=== PATIENT | male | born 1965 | race Hispanic/Latino ===

== ENCOUNTER 2018-01-23 11:27 | Emergency (ER) | payer OTHER ==
--- OUTSIDE RECORDS SUMMARY | 2018-01-23 11:29 | XMS REPORT ---
:1965 Author Organization eClinicalWorks Care Team Providers Name Role Phone Obando, Na Provider Role Unavailable Allergies, Adverse Reactions, Alerts Substance Reaction Event Type N.K.D.A. Info Not Available Non Drug Allergy Problems Problem Type Condition Code Onset Dates Condition Status Assessment Gastro-esophageal reflux disease K21.9 Active without esophagitis Problem Abdominal mass, left lower quadrant R19.04 Active Assessment Diaphragmatic hernia without K44.9 Active obstruction or gangrene Problem Hiatal hernia K44.9 Active Problem Chest discomfort R07.89 Active Problem Allergic rhinitis J30.9 Active Problem Cervical radiculopathy M54.12 Active Problem Diaphragmatic hernia without K44.9 Active obstruction or gangrene Problem Gastro-esophageal reflux disease K21.9 Active without esophagitis Problem Sciatica of right side M54.31 Active Assessment Chest discomfort R07.89 Active Assessment Sciatica of right side M54.31 Active Assessment Cervical radiculopathy M54.12 Active Medications No Known Medications Results No Known Results Summary Purpose eClinicalLinktone Submission
[2018-01-23] MEDS ORDERED: NA CHLORIDE 0.9% 1,000 ML ONE (12:28)
[2018-01-23] MEDS ORDERED: FENTANYL CITR 100 MCG/2 ML ONE (12:28)
[2018-01-23 12:50] LABS: Absolute Lymphocytes (CBC) 1.2 K/uL (0.7-4.9); Absolute Monocytes 0.6 K/uL (0.1-1.3); Absolute Neutrophil 6.4 K/uL (1.8-8.0); Basophils % 0.8 % (0-1.3); Eosinophils % 0.4 % (0-4.4); Lymphocytes % 14.4 % (15.3-44.8); MCH 30.4 pg (27.0-35.0); MCV 90.2 fL (80-100); Monocytes % 6.7 % (3.3-12.3); RBC Red Blood Cell Count 4.76 M/uL (4.33-5.43)
[2018-01-23 13:08] LABS: Bicarbonate 26 mEq/L (21-31); Glucose Level 105 mg/dL (65-120); Potassium 3.8 mEq/L (3.6-5.0); Sodium Level 137 mEq/L (135-145)
[2018-01-23 13:14] LABS: ALT/SGPT 61 IU/L (10-60); AST/SGOT 36 IU/L (10-42); Albumin 4.3 g/dL (3.2-5.5); Alkaline Phosphatase 71 IU/L (42-121); BUN Blood Urea Nitrogen 15 mg/dL (6-20); Bilirubin Direct 0.1 mg/dL (0-0.2); Bilirubin Total 1.2 mg/dL (0.3-1.2); Protein, Total 7.4 g/dL (6.0-8.3)
--- NOTE | 2018-01-23 15:28 | RAD REPORT ---
EXAM DESCRIPTION: CT - Abdomen Pelvis W Contrast - 01/23/2018 2:53 pm CLINICAL HISTORY: Abdominal pain, rectal pain, rectal bleeding COMPARISON: None. TECHNIQUE: Biphasic, helical CT imaging of the abdomen and pelvis was performed following 100 ml non -ionic IV contrast. Oral contrast was given. All CT scans are performed using dose optimization technique as appropriate and may include automated exposure control or mA/KV adjustment according to patient size. FINDINGS: No acute infiltrate in either lung base. No pneumothorax or pleural effusion. No pericardi al effusion. In the anterior right lung base a 7 millimeter round nodule is present. This is relative ly dense but not clearly calcified. There are no comparison studies that can establish a long-term st ability. Followup recommendation for 7 millimeter pulmonary nodule is the same for low risk and high risk yareli ents. Follow-up for a solitary nodule is -2011 months. The patient could have additional nodules wh ich would shortened the follow-up time to 3-6 months. The liver, spleen, and pancreas show no suspicious findings. Liver is borderline to mildly fatty infi ltrated. No gallbladder or biliary tree abnormality. Symmetric renal function is seen with no hydronephrosis or suspicious renal mass. No pyelonephritis o r acute renal parenchymal process. No urinary bladder abnormality. Prostate gland and seminal vesicle s are normal range. No gastric dilatation or gastric wall thickening. A small hiatal hernia is present. No acute small margarita wel finding. The appendix is normal. Patient has a moderate diverticulosis pattern in the redundant s igmoid colon. Shaw are mildly prominent. Patient could have a minimal mucosal level colitis or diver ticulitis. No stranding in the adjacent fatty tissue. There peristalsis artifacts. Short-segment narr owing of the distal sigmoid colon is probably from peristalsis. No free air, free fluid or inflammatory stranding. No mass or bulky lymphadenopathy. Bilateral fat f illed inguinal hernias are present larger on the right. No adrenal abnormality. No suspicious bony findings. IMPRESSION: Patient has a mild to moderate sigmoid diverticulosis pattern without clear evidence for diverticulitis, mass or other acute colon finding. Colon shaw are mildly prominent from the chronic diverticulosis and probable peristalsis. Primary co portillo mass is unlikely. Approximately 7 millimeter pulmonary nodule anterior right lung base. No comparison is available and this is not a complete assessment of the chest. Followup recommendation for a solitary pulmonary nodule 7 millimeter in size would be CT imaging in 6 -12 months. If the patient had multiple pulmonary nodules follow-up would be 3-6 months. A [address] chest follow-up would be reasonable in this setting.
--- NOTE | 2018-01-23 15:33 | ER ---
Nurse's Notes [facility] Name: Scout Rubio Age: 52 yrs Sex: Male : 1965 Arrival Date: 01/23/2018 Time: 11:31 Bed 19 Private MD: Tamanna Obando Diagnosis: Gastrointestinal hemorrhage, unspecified;Diverticulosis of intestine, part unspecified, without perforation or abscess without bleeding Presentation: 01/23 11:32 Presenting complaint: Patient states: " I had a BM a few days ago that was really ph painful and since then I've been having bleeding." Pt reports blood on toilet paper and small amount of bright red blood in toilet, also reports pain in LLQ, denies N/V, dizziness, SOB. Transition of care: patient was not received from another setting of care. Onset of symptoms was January 23, 2018. Risk Assessment: Do you want to hurt yourself or someone else? Patient reports no desire to harm self or others. Initial Sepsis Screen: Does the patient meet any 2 criteria? No. Patient's initial sepsis screen is negative. Does the patient have a suspected source of infection? No. Patient's initial sepsis screen is negative. Care prior to arrival: None. 11:32 Method Of Arrival: Ambulatory ph 11:32 Acuity: JUAN RAMON 3 ph Historical: - Allergies: 11:35 PENICILLINS; ph - Home Meds: 11:35 None [Active]; ph - PMHx: 11:35 Ulcers; ph - PSHx: 11:35 None; ph - Immunization history:: Adult Immunizations unknown. - Social history:: Smoking status: Patient uses tobacco products, smokes one-half pack cigarettes per day. - Ebola Screening: : No symptoms or risks identified at this time. Screenin:00 Abuse screen: Denies threats or abuse. Nutritional screening: No deficits noted. em Tuberculosis screening: No symptoms or risk factors identified. Fall Risk None identified. Assessment: 11:40 General: Appears in no apparent distress. comfortable, Behavior is calm, cooperative. em Pain: Denies pain. Neuro: Level of Consciousness is awake, alert, obeys commands, Oriented to person, place, time, situation. Cardiovascular: Denies chest pain, lightheadedness, shortness of breath, Capillary refill < 3 seconds Patient's skin is warm and dry. Respiratory: Airway is patent Respiratory effort is even, unlabored, Respiratory pattern is regular, symmetrical. GI: Abdomen is flat, Patient currently denies nausea, vomiting. : No signs and/or symptoms were reported regarding the genitourinary system. EENT: No signs and/or symptoms were reported regarding the EENT system. Derm: Skin is intact, Skin is pink, warm \\T\\ dry. Musculoskeletal: Range of motion: intact in all extremities. 11:50 Reassessment: Patient appears in no apparent distress at this time. I agree with above iw assessment by Jeff Flores LVN. 12:40 Reassessment: Patient appears in no apparent distress at this time. Patient and/or em family updated on plan of care and expected duration. Pain level reassessed. Patient is alert, oriented x 3, equal unlabored respirations, skin warm/dry/pink. Patient denies pain at this time. 12:45 Reassessment: Patient appears in no apparent distress at this time. finished drinking em PO contrast, tolerated well, CT notified. 13:45 Reassessment: Patient appears in no apparent distress at this time. Patient and/or em family updated on plan of care and expected duration. Pain level reassessed. Patient is alert, oriented x 3, equal unlabored respirations, skin warm/dry/pink. awaiting CT Patient denies pain at this time. 14:49 Reassessment: Patient appears in no apparent distress at this time. Patient and/or em family updated on plan of care and expected duration. Pain level reassessed. wheeled to CT via wheelchair. 15:13 Reassessment: Patient appears in no apparent distress at this time. Patient and/or em family updated on plan of care and expected duration. Pain level reassessed. Patient is alert, oriented x 3, equal unlabored respirations, skin warm/dry/pink. Patient denies pain at this time. 16:00 Reassessment: Patient appears in no apparent distress at this time. Patient and/or em family updated on plan of care and expected duration. Pain level reassessed. Patient is alert, oriented x 3, equal unlabored respirations, skin warm/dry/pink. Patient states feeling better. Vital Signs: 11:36 BP 134 / 86; Pulse 95; Resp 18; Temp 97.9; Pulse Ox 96% on R/A; Weight 90.72 kg; Height ph 5 ft. 7 in. (170.18 cm); 12:59 BP 117 / 77; Pulse 66; Resp 18; Pulse Ox 99% on R/A; dh3 13:45 BP 121 / 86; Pulse 64; Resp 18; Pulse Ox 98% on R/A; Pain 0/10; em 15:45 BP 116 / 87; Pulse 65; Resp 15; Pulse Ox 97% on R/A; Pain 0/10; em 11:36 Body Mass Index 31.32 (90.72 kg, 170.18 cm) ph ED Course: 11:31 Patient arrived in ED. mr 11:31 Tamanna Obando MD is Private Physician. mr 11:35 Triage completed. ph 11:37 Arm band placed on. ph 11:42 Jeff Flores LVN is Primary Nurse. em 12:00 No provider procedures requiring assistance completed. em 12:01 Patient has correct armband on for positive identification. Call light in reach. Adult em w/ patient. 12:03 [facility] Milton [facility] snw 12:03 Mik Glasgow MD is Attending Physician. snw 13:00 Inserted saline lock: 20 gauge in right forearm, using aseptic technique. Blood em collected. 13:00 Initial lab(s) drawn, by me, sent to lab. em 14:[address] via wheelchair. mw3 14:53 CT Abd/Pelvis - W/Contrast In Process Unspecified. EDMS 14:53 CT completed. Patient tolerated procedure well. Patient moved back from CT. mw3 15:10 Urine collected: clean catch specimen, clear. dh3 15:32 Tamanna Obando MD is Referral Physician. snw 16:17 IV discontinued, intact, bleeding controlled, No redness/swelling at site. Pressure em dressing applied. Administered Medications: 12:40 Drug: NS 0.9% 1000 ml Route: IV; Rate: 1 bolus; Site: right forearm; em 13:44 Follow up: IV Status: Completed infusion; IV Intake: 1000ml em 12:48 Not Given (Physician Discretion): fentaNYL (PF) 25 mcg IVP once em 16:15 Drug: Cipro 500 mg Route: PO; em 16:20 Follow up: Response: Medication administered at discharge. em Intake: 13:44 IV: 1000ml; Total: 1000ml. em Outcome: 15:33 Discharge ordered by MD. kim 16:18 Discharged to home ambulatory. em 16:18 Condition: good 16:18 Discharge instructions given to patient, Instructed on discharge instructions, follow up and referral plans. medication usage, Demonstrated understanding of instructions, follow-up care, medications, Prescriptions given X 2. 16:19 Patient left the ED. em Signatures: Dispatcher [employer] EDMS Joseline Milton, PETROLEUM GEOLOGIST-C PETROLEUM GEOLOGIST-Csnw Marbella Wilson, Jeff, DISPLAY SCREEN FABRICATOR DISPLAY SCREEN FABRICATOR em Stephani Ponce, RN RN Anais Hector RN RN Shankar, Alissa [facility] Malaika Champagne 3
--- NOTE | 2018-01-23 15:33 | EDPHYS ---
Physician Documentation [facility] Name: Scout Rubio Age: 52 yrs Sex: Male : 1965 Arrival Date: 01/23/2018 Time: 11:31 Bed 19 Private MD: Tamanna Obando ED Physician Mik Glasgow HPI: 01/23 12:31 This 52 yrs old Male presents to ER via Ambulatory with complaints of Bloody snw Stools. 12:31 Onset: The symptoms/episode began/occurred 3 day(s) ago, and became persistent. snw Associated signs and symptoms: Pertinent positives: hard stool three days ago, followed by bright red rectal bleeding daily since. Modifying factors: The patient symptoms are alleviated by nothing. The patient has experienced a previous episode. The patient has not recently seen a physician. mild left lower, mid abd pain. Historical: - Allergies: 11:35 PENICILLINS; ph - Home Meds: 11:35 None [Active]; ph - PMHx: 11:35 Ulcers; ph - PSHx: 11:35 None; ph - Immunization history:: Adult Immunizations unknown. - Social history:: Smoking status: Patient uses tobacco products, smokes one-half pack cigarettes per day. - Ebola Screening: : No symptoms or risks identified at this time. ROS: 12:26 Constitutional: Negative for fever, chills, and weight loss, Eyes: Negative for injury, snw pain, redness, and discharge, ENT: Negative for injury, pain, and discharge, Neck: Negative for injury, pain, and swelling, Cardiovascular: Negative for chest pain, palpitations, and edema, Respiratory: Negative for shortness of breath, cough, wheezing, and pleuritic chest pain, Abdomen/GI: Negative for abdominal pain, nausea, vomiting, diarrhea, and constipation, + bright red blood on toilet paper and in water, notes decrease in diameter of stool. Pt had colonoscopy 4 yrs ago. + stomach ulcer with bleeding and blood transfusion prompted GI eval. at that time Back: Negative for injury and pain, : Negative for injury, bleeding, discharge, and swelling, MS/Extremity: Negative for injury and deformity, Skin: Negative for injury, rash, and discoloration, Neuro: Negative for headache, weakness, numbness, tingling, and seizure. Exam: 12:25 Constitutional: This is a well developed, well nourished patient who is awake, alert, snw and in no acute distress. Head/Face: Normocephalic, atraumatic. Eyes: Pupils equal round and reactive to light, extra-ocular motions intact. Lids and lashes normal. Conjunctiva and sclera are non-icteric and not injected. Cornea within normal limits. Periorbital areas with no swelling, redness, or edema. ENT: Nares patent. No nasal discharge, no septal abnormalities noted. Tympanic membranes are normal and external auditory canals are clear. Oropharynx with no redness, swelling, or masses, exudates, or evidence of obstruction, uvula midline. Mucous membranes moist. Neck: Trachea midline, no thyromegaly or masses palpated, and no cervical lymphadenopathy. Supple, full range of motion without nuchal rigidity, or vertebral point tenderness. No Meningismus. Chest/axilla: Normal chest wall appearance and motion. Nontender with no deformity. No lesions are appreciated. Cardiovascular: Regular rate and rhythm with a normal S1 and S2. No gallops, murmurs, or rubs. Normal PMI, no JVD. No pulse deficits. Respiratory: Lungs have equal breath sounds bilaterally, clear to auscultation and percussion. No rales, rhonchi or wheezes noted. No increased work of breathing, no retractions or nasal flaring. Back: No spinal tenderness. No costovertebral tenderness. Full range of motion. Skin: Warm, dry with normal turgor. Normal color with no rashes, no lesions, and no evidence of cellulitis. MS/ Extremity: Pulses equal, no cyanosis. Neurovascular intact. Full, normal range of motion. Neuro: Awake and alert, GCS 15, oriented to person, place, time, and situation. Cranial nerves II-XII grossly intact. Motor strength 5/5 in all extremities. Sensory grossly intact. Cerebellar exam normal. Normal gait. Psych: Awake, alert, with orientation to person, place and time. Behavior, mood, and affect are within normal limits. 12:25 Abdomen/GI: Inspection: abdomen appears normal, Bowel sounds: normal, Palpation: mild abdominal tenderness, in the left upper quadrant and left lower quadrant, no appreciated organomegaly, Rectal exam: Prostate: normal, rectal tone normal, Stool: guaiac positive, hemorrhoid(s), without inflammation, without pain, mass, is not appreciated, fecal impaction, is not appreciated, the exam is chaperoned by the nurse, cystic characteristic to mass at border of left lower rib/upper abdomen area, non tender, pt states it has been there, unchanged, for years. Vital Signs: 11:36 BP 134 / 86; Pulse 95; Resp 18; Temp 97.9; Pulse Ox 96% on R/A; Weight 90.72 kg; Height ph 5 ft. 7 in. (170.18 cm); 12:59 BP 117 / 77; Pulse 66; Resp 18; Pulse Ox 99% on R/A; dh3 13:45 BP 121 / 86; Pulse 64; Resp 18; Pulse Ox 98% on R/A; Pain 0/10; em 15:45 BP 116 / 87; Pulse 65; Resp 15; Pulse Ox 97% on R/A; Pain 0/10; em 11:36 Body Mass Index 31.32 (90.72 kg, 170.18 cm) ph MDM: 12:03 Patient medically screened. snw 15:36 Data reviewed: vital signs, nurses notes. Data interpreted: Pulse oximetry: on room air snw is 98 %. Interpretation: normal. Counseling: I had a detailed discussion with the patient and/or guardian regarding: the historical points, exam findings, and any diagnostic results supporting the discharge/admit diagnosis, the presence of at least one elevated blood pressure reading (>120/80) during this emergency department visit, lab results, radiology results, the need for outpatient follow up, to return to the emergency department if symptoms worsen or persist or if there are any questions or concerns that arise at home. Special discussion: Based on the patient's Hx, exam, and Dx evaluation, there is no indication for emergent surgery or inpatient Tx. It is understood by the patient/guardian that if the Sx's persist or worsen they need to return immediately for re-evaluation. I have referred the patient to see his PCP for further evaluation of high blood pressure. Based on the history and exam findings, there is no indication for further emergent testing or inpatient evaluation. I discussed with the patient/guardian the need to see the dermatologist for further evaluation of the symptoms. I discussed with the patient/guardian the need to see the primary care provider for further evaluation of the symptoms. 01/23 12:24 Order name: Basic Metabolic Panel; Complete Time: 13:16 snw 01/23 12:24 Order name: CBC with Diff; Complete Time: 12:57 snw 01/23 12:24 Order name: Hepatic Function; Complete Time: 13:16 snw 01/23 12:24 Order name: CT Abd/Pelvis - W/Contrast; Complete Time: 15:28 snw 01/23 12:24 Order name: Guiac; Complete Time: 15:08 snw 01/23 15:36 Order name: Urine Dipstick--Ancillary (enter results); Complete Time: 16:06 bd 01/23 12:24 Order name: IV Saline Lock; Complete Time: 13:14 snw 01/23 12:24 Order name: Labs collected and sent; Complete Time: 13:14 snw 01/23 12:24 Order name: Urine Dipstick-Ancillary (obtain specimen); Complete Time: 15:10 snw Administered Medications: 12:40 Drug: NS 0.9% 1000 ml Route: IV; Rate: 1 bolus; Site: right forearm; em 13:44 Follow up: IV Status: Completed infusion; IV Intake: 1000ml em 12:48 Not Given (Physician Discretion): fentaNYL (PF) 25 mcg IVP once em 16:15 Drug: Cipro 500 mg Route: PO; em 16:20 Follow up: Response: Medication administered at discharge. em Disposition: 18:44 Co-signature as Attending Physician, Mik Glasgow MD I agree with the assessment and kdr plan of care. Disposition: 01/23/18 15:33 Discharged to Home. Impression: Gastrointestinal hemorrhage, unspecified, Diverticulosis of intestine, part unspecified, without perforation or abscess without bleeding. - Condition is Stable. - Discharge Instructions: Diverticulosis, Gastrointestinal Bleeding. - Prescriptions for Cipro 250 mg Oral Tablet - take 1 tablet by ORAL route every 12 hours for 10 days; 20 tablet. Protonix 40 mg Oral Tablet - take 1 tablet by ORAL route once daily; 30 tablet. - Medication Reconciliation Form, Thank You Letter, Antibiotic Education, Prescription Opioid Use form. - Follow up: Tamanna Obando; When: 2 - 3 days; Reason: Recheck today's complaints, Continuance of care, Re-evaluation by your physician. Follow up: Emergency Department; When: As needed; Reason: Worsening of condition. - Notes: Pulmonary nodule noted on CT of abdomen. Recommend re-evaluation by CT of chest in 6 months. Signatures: Dispatcher [employer] EDMS Mik Glasgow MD MD [facility] Joseline Milton, JUMANA CONSUMER LOAN MANAGER-Csnw Jeff Flores, SERVICE TRAINER SERVICE TRAINER em Anais Hector, RN RN ph Corrections: (The following items were deleted from the chart) 12:31 12:25 Abdomen/GI: Inspection: abdomen appears normal, Bowel sounds: normal, Palpation: snw mild abdominal tenderness, in the left upper quadrant and left lower quadrant, no appreciated organomegaly, Rectal exam: Prostate: normal, rectal tone normal, Stool: guaiac positive, hemorrhoid(s), without inflammation, without pain, mass, is not appreciated, fecal impaction, is not appreciated, the exam is chaperoned by the nurse, snw 16:19 15:33 01/23/2018 15:33 Discharged to Home. Impression: Gastrointestinal hemorrhage, em unspecified; Diverticulosis of intestine, part unspecified, without perforation or abscess without bleeding. Condition is Stable. Forms are Medication Reconciliation Form, Thank You Letter, Antibiotic Education, Prescription Opioid Use. Follow up: Tamanna Obando; When: 2 - 3 days; Reason: Recheck today's complaints, Continuance of care, Re-evaluation by your physician. Follow up: Emergency Department; When: As needed; Reason: Worsening of condition. snw
[2018-01-23 16:04] LABS: Urine Blood NEGATIVE (NEG); Urine Glucose NEGATIVE (NEG); Urine Protein NEGATIVE (NEG); Urine Specific Gravity 1.015 (1.005-1.030)
[2018-01-23] MEDS ORDERED: CIPROFLOXACIN HCL 500 MG TAB ONE (16:07)
== END 2018-01-23 16:19 | disposition home or self-care (01) ==
LOC: ER 11:27
DX: K57.90 Diverticulosis of intestine, part unspecified, without perforation or abscess without bleeding (principal); F17.210 Nicotine dependence, cigarettes, uncomplicated; Z88.0 Allergy status to penicillin
CPT/HCPCS: 36415; 74177; 80048; 80076; 81003; 82272; 85025; 96360; 99284; J3010; J7030; Q9967

== ENCOUNTER 2018-10-18 17:06 | Emergency (ER) | payer OTHER ==
--- OUTSIDE RECORDS SUMMARY | 2018-10-18 17:07 | XMS REPORT ---
[...] Medications Results No Known Results Summary Purpose eClinicalMonitor Submission
--- OUTSIDE RECORDS SUMMARY | 2018-10-18 17:08 | XMS REPORT ---
:1965 Author Organization eClinicalWorks Care Team Providers Name Role Phone Obando, Na Provider Role Unavailable Allergies, Adverse Reactions, Alerts Substance Reaction Event Type N.K.D.A. Info Not Available Non Drug Allergy Problems Problem Type Condition Code Onset Dates Condition Status Problem Cervical radiculopathy M54.12 Active Problem Gastro-esophageal reflux disease K21.9 Active without esophagitis Problem Sciatica of right side M54.31 Active Problem Diverticulosis of large intestine K57.30 Active without hemorrhage Problem Pulmonary nodule, right R91.1 Active Problem Fatty liver K76.0 Active Problem Hiatal hernia K44.9 Active Problem Chest discomfort R07.89 Active Problem Allergic rhinitis J30.9 Active Problem Abdominal mass, left lower quadrant R19.04 Active Assessment Diverticulosis of large intestine K57.30 Active without hemorrhage Assessment Gastro-esophageal reflux disease K21.9 Active without esophagitis Assessment Diaphragmatic hernia without K44.9 Active obstruction or gangrene Assessment Pulmonary nodule, right R91.1 Active Assessment Fatty liver K76.0 Active Problem Diaphragmatic hernia without K44.9 Active obstruction or gangrene Medications No Known Medications Results No Known Results Summary Purpose eClinicalWorks Submission
--- OUTSIDE RECORDS SUMMARY | 2018-10-18 17:08 | XMS REPORT ---
:1965 Author Organization eClinicalWorks Care Team Providers Name Role Phone Obando, Na Provider Role Unavailable Allergies No Known Allergies Problems Problem Type Condition Code Onset Dates Condition Status Problem Cervical radiculopathy M54.12 Active Problem Gastro-esophageal reflux disease K21.9 Active without esophagitis Problem Sciatica of right side M54.31 Active Problem Diaphragmatic hernia without K44.9 Active obstruction or gangrene Problem Diverticulosis of large intestine K57.30 Active without hemorrhage Problem Pulmonary nodule, right R91.1 Active Problem Fatty liver K76.0 Active Problem Hiatal hernia K44.9 Active Problem Chest discomfort R07.89 Active Problem Allergic rhinitis J30.9 Active Problem Abdominal mass, left lower quadrant R19.04 Active Medications No Known Medications Results No Known Results Summary Purpose eClinicalWorks Submission
[2018-10-18 17:43] LABS: Absolute Lymphocytes (CBC) 1.7 K/uL (0.7-4.9); Absolute Monocytes 0.7 K/uL (0.1-1.3); Absolute Neutrophil 8.4 K/uL (1.8-8.0); Basophils % 0.7 % (0-1.3); Hematocrit 42.7 % (39.6-49.0); Lymphocytes % 15.8 % (15.3-44.8); MPV 9.3 fL (7.6-11.3); Monocytes % 6.4 % (3.3-12.3); RBC Red Blood Cell Count 4.74 M/uL (4.33-5.43)
[2018-10-18 17:44] LABS: Protime INR 1.02
[2018-10-18 17:58] LABS: ALT/SGPT 37 U/L (12-78); AST/SGOT 16 U/L (15-37); Albumin 4.1 g/dL (3.4-5.0); Alkaline Phosphatase 81 U/L (45-117); BUN Blood Urea Nitrogen 16 mg/dL (7-18); Bicarbonate 24 mmol/L (21-32); Bilirubin Direct 0.2 mg/dL (0-0.2); Bilirubin Total 0.6 mg/dL (0.2-1.0); Glucose Level 101 mg/dL (74-106); Magnesium 2.4 mg/dL (1.8-2.4); NT PRO-BNP 6 pg/mL (<125); Potassium 3.8 mmol/L (3.5-5.1); Protein, Total 7.5 g/dL (6.4-8.2); Sodium Level 140 mmol/L (136-145); Troponin (Emerg Dept Use Only) < 0.02 ng/mL (0.0-0.045)
--- NOTE | 2018-10-18 18:39 | RAD REPORT ---
EXAM DESCRIPTION: RAD - Chest Single View - 10/18/2018 6:06 pm CLINICAL HISTORY: Chest pain COMPARISON: October 2017 TECHNIQUE: AP portable chest image was obtained 1802 hours . FINDINGS: Lungs are clear. Heart and vasculature are normal. No measurable pleural effusion and no p neumothorax. No acute bony abnormality seen. No acute aortic findings suspected. IMPRESSION: No acute cardiopulmonary process. No significant interval change.
--- NOTE | 2018-10-18 20:27 | EDPHYS ---
Physician Documentation [facility] Name: Scout Rubio Age: 53 yrs Sex: Male : 1965 Arrival Date: 10/18/2018 Time: 17:07 Bed 6 Private MD: ED Physician Kiran Ferrari HPI: 10/18 18:00 This 53 yrs old Male presents to ER via Ambulatory with complaints of Chest pm1 pain. 18:00 The patient or guardian reports chest pain that is located primarily in the mid-sternal pm1 area. Onset: 1 week(s) ago. The pain does not radiate. Associated signs and symptoms: Pertinent positives: cough, Pertinent negatives: abdominal pain, diaphoresis, dizziness, headache, lightheadedness, nausea, near syncope, palpitations, shortness of breath, vomiting. The chest pain is described as sharp. Duration: The patient or guardian reports multiple episodes. Modifying factors: The symptoms are alleviated by nothing. the symptoms are aggravated by nothing. Severity of pain: in the emergency department the pain has resolved. The patient has experienced similar episodes in the past, a few times. The patient has not recently seen a physician. Patient reports numbness to tips of his right 4th and 5th finger. Historical: - Allergies: 17:12 PENICILLINS; aa5 - Home Meds: 17:12 None [Active]; aa5 - PMHx: 17:12 Ulcers; aa5 - PSHx: 17:12 "lungs drained as a child"; aa5 - Immunization history:: Flu vaccine is not up to date. - Social history:: Smoking status: Patient uses tobacco products, smokes one-half pack cigarettes per day. - Ebola Screening: : No symptoms or risks identified at this time. ROS: 18:00 Constitutional: Negative for fever, chills, and weight loss, Eyes: Negative for injury, pm1 pain, redness, and discharge, ENT: Negative for injury, pain, and discharge, Neck: Negative for injury, pain, and swelling, Respiratory: Negative for shortness of breath, cough, wheezing, and pleuritic chest pain, Abdomen/GI: Negative for abdominal pain, nausea, vomiting, diarrhea, and constipation, Back: Negative for injury and pain, : Negative for injury, bleeding, discharge, and swelling, MS/Extremity: Negative for injury and deformity, Skin: Negative for injury, rash, and discoloration. 18:00 Cardiovascular: Positive for chest pain, Negative for edema, orthopnea, palpitations, paroxysmal nocturnal dyspnea. 18:00 Neuro: Positive for numbness, of the palmar aspect of distal phalanx of right little finger and palmar aspect of distal phalanx of right ring finger, Negative for altered mental status, dizziness, headache, tingling, weakness. Exam: 18:00 Constitutional: This is a well developed, well nourished patient who is awake, alert, pm1 and in no acute distress. Head/Face: Normocephalic, atraumatic. Eyes: Pupils equal round and reactive to light, extra-ocular motions intact. Lids and lashes normal. Conjunctiva and sclera are non-icteric and not injected. Cornea within normal limits. Periorbital areas with no swelling, redness, or edema. ENT: Nares patent. No nasal discharge, no septal abnormalities noted. Tympanic membranes are normal and external auditory canals are clear. Oropharynx with no redness, swelling, or masses, exudates, or evidence of obstruction, uvula midline. Mucous membranes moist. Neck: Trachea midline, no thyromegaly or masses palpated, and no cervical lymphadenopathy. Supple, full range of motion without nuchal rigidity, or vertebral point tenderness. No Meningismus. Chest/axilla: Normal chest wall appearance and motion. Nontender with no deformity. No lesions are appreciated. Cardiovascular: Regular rate and rhythm with a normal S1 and S2. No gallops, murmurs, or rubs. Normal PMI, no JVD. No pulse deficits. Respiratory: Lungs have equal breath sounds bilaterally, clear to auscultation and percussion. No rales, rhonchi or wheezes noted. No increased work of breathing, no retractions or nasal flaring. Abdomen/GI: Soft, non-tender, with normal bowel sounds. No distension or tympany. No guarding or rebound. No evidence of tenderness throughout. Back: No spinal tenderness. No costovertebral tenderness. Full range of motion. Skin: Warm, dry with normal turgor. Normal color with no rashes, no lesions, and no evidence of cellulitis. MS/ Extremity: Pulses equal, no cyanosis. Neurovascular intact. Full, normal range of motion. 18:00 Neuro: Orientation: is normal, Motor: is normal, moves all fours, strength is normal, strength is 5/5 in all extremities, Sensation: is normal, no obvious gross deficits, Gait: is steady, at a normal pace, without difficulty. Vital Signs: 17:21 BP 126 / 95; Pulse 75; Resp 16 S; Temp 98.9(O); Pulse Ox 97% on R/A; Weight 90.72 kg aa5 (R); Height 5 ft. 6 in. (167.64 cm) (R); Pain 0/10; 19:20 BP 134 / 92; Pulse 66; Resp 16; Pulse Ox 96% on R/A; Pain 0/10; tl1 20:40 BP 126 / 91; Pulse 64; Resp 14; Temp 98.8(O); Pulse Ox 98% ; Pain 0/10; tl1 17:21 Body Mass Index 32.28 (90.72 kg, 167.64 cm) aa5 MDM: 17:13 Patient medically screened. pm1 20:25 Data reviewed: vital signs. Data interpreted: Pulse oximetry: on room air is 96 %. pm1 Interpretation: normal. 10/18 17:20 Order name: Basic Metabolic Panel; Complete Time: 18:14 pm1 10/18 17:20 Order name: CBC with Diff; Complete Time: 18:14 pm1 10/18 17:20 Order name: LFT's; Complete Time: 18:14 pm1 10/18 17:20 Order name: Magnesium; Complete Time: 18:14 pm1 10/18 17:20 Order name: NT PRO-BNP; Complete Time: 18:14 pm1 10/18 17:20 Order name: PT-INR; Complete Time: 18:14 pm1 10/18 17:20 Order name: Troponin (emerg Dept Use Only); Complete Time: 18:14 pm1 10/18 17:20 Order name: XRAY Chest (1 view); Complete Time: 18:39 pm1 10/18 17:20 Order name: EKG; Complete Time: 17:22 pm10/18 17:20 Order name: Cardiac monitoring; Complete Time: 17:22 pm1 10/18 17:20 Order name: EKG - Nurse/Tech; Complete Time: 17:22 pm10/18 17:20 Order name: IV Saline Lock; Complete Time: 17:33 pm1 10/18 17:20 Order name: Flu; Complete Time: 18:14 pm1 10/18 19:44 Order name: Troponin (emerg Dept Use Only); Complete Time: 20:25 tl1 10/18 17:20 Order name: Labs collected and sent; Complete Time: 17:33 pm1 10/18 17:20 Order name: O2 Per Protocol; Complete Time: 17:22 pm1 10/18 17:20 Order name: O2 Sat Monitoring; Complete Time: 17:22 pm1 Administered Medications: No medications were administered Disposition: 10/19 12:04 Co-signature as Attending Physician, Kiran Ferrari MD. Disposition: 10/18/18 20:27 Discharged to Home. Impression: Chest pain, unspecified. - Condition is Stable. - Discharge Instructions: Nonspecific Chest Pain. - Medication Reconciliation Form, Thank You Letter, Antibiotic Education, Prescription Opioid Use form. - Follow up: Emergency Department; When: As needed; Reason: Worsening of condition. Follow up: Private Physician; When: 2 - 3 days; Reason: Recheck today's complaints, Continuance of care, Re-evaluation by your physician. - Problem is new. - Symptoms have improved. Signatures: Dispatcher [employer] EDMS Kayley Humphreys RN RN aa5 Chloe Dwyer RN RN tl1 Zach Choi, CLIENT ACCOUNT ASSISTANT CLIENT ACCOUNT ASSISTANT pm1 Kiran Ferrari MD MD Corrections: (The following items were deleted from the chart) 10/18 20:52 20:27 10/18/2018 20:27 Discharged to Home. Impression: Chest pain, unspecified. tl1 Condition is Stable. Forms are Medication Reconciliation Form, Thank You Letter, Antibiotic Education, Prescription Opioid Use. Follow up: Emergency Department; When: As needed; Reason: Worsening of condition. Follow up: Private Physician; When: 2 - 3 days; Reason: Recheck today's complaints, Continuance of care, Re-evaluation by your physician. Problem is new. Symptoms have improved. pm1
--- NOTE | 2018-10-18 20:27 | ER ---
Nurse's Notes [facility] Name: Scout Rubio Age: 53 yrs Sex: Male : 1965 Arrival Date: 10/18/2018 Time: 17:07 Bed 6 Private MD: Diagnosis: Chest pain, unspecified Presentation: 10/18 17:10 Presenting complaint: Patient states: episodic chest pain lasting 15-30 minutes that aa5 began 1 week ago. Pt reports coughing up phlegm this morning but denies constant cough. Denies SOB, denies N/V. Reports tingling to right little/right ring finger that began this morning. 17:10 Transition of care: patient was not received from another setting of care. Onset of aa5 symptoms was October 2018. Risk Assessment: Do you want to hurt yourself or someone else? Patient reports no desire to harm self or others. Initial Sepsis Screen: Does the patient meet any 2 criteria? No. Patient's initial sepsis screen is negative. Does the patient have a suspected source of infection? No. Patient's initial sepsis screen is negative. Care prior to arrival: None. 17:10 Acuity: JUAN RAMON 3 aa5 17:10 Method Of Arrival: Ambulatory aa5 Historical: - Allergies: 17:12 PENICILLINS; aa5 - Home Meds: 17:12 None [Active]; aa5 - PMHx: 17:12 Ulcers; aa5 - PSHx: 17:12 "lungs drained as a child"; aa5 - Immunization history:: Flu vaccine is not up to date. - Social history:: Smoking status: Patient uses tobacco products, smokes one-half pack cigarettes per day. - Ebola Screening: : No symptoms or risks identified at this time. Screenin:12 Abuse screen: Denies threats or abuse. Nutritional screening: No deficits noted. aa5 Tuberculosis screening: No symptoms or risk factors identified. Fall Risk None identified. Assessment: 17:12 General: Appears comfortable, Behavior is calm, cooperative. Pain: Denies pain. Neuro: aa5 Level of Consciousness is awake, alert, obeys commands, Oriented to person, place, time, situation, Iron Caster are equal bilaterally Moves all extremities. Gait is steady, Speech is normal, Facial symmetry appears normal, Pupils are PERRLA, Reports tingling to right ring finger and right little finger . Cardiovascular: Heart tones S1 S2 present Rhythm is sinus rhythm. Respiratory: Airway is patent Respiratory effort is even, unlabored, Respiratory pattern is regular, symmetrical, Breath sounds are clear bilaterally. Denies shortness of breath. GI: Abdomen is round Bowel sounds present X 4 quads. Abd is soft and non tender X 4 quads. : No signs and/or symptoms were reported regarding the genitourinary system. EENT: No signs and/or symptoms were reported regarding the EENT system. Derm: Skin is pink, warm \\T\\ dry. Musculoskeletal: Range of motion: intact in all extremities. 18:45 Reassessment: Patient and/or family updated on plan of care and expected duration. Pain aa5 level reassessed. Patient is alert, oriented x 3, equal unlabored respirations, skin warm/dry/pink. Patient denies pain at this time. Pt notified of wait time for repeat troponin by [employer]ACE OFFICER. . 20:41 Reassessment: Patient and/or family updated on plan of care and expected duration. Pain tl1 level reassessed. Patient is alert, oriented x 3, equal unlabored respirations, skin warm/dry/pink. Patient denies pain at this time. Patient states feeling better. Patient states symptoms have improved. Vital Signs: 17:21 BP 126 / 95; Pulse 75; Resp 16 S; Temp 98.9(O); Pulse Ox 97% on R/A; Weight 90.72 kg aa5 (R); Height 5 ft. 6 in. (167.64 cm) (R); Pain 0/10; 19:20 BP 134 / 92; Pulse 66; Resp 16; Pulse Ox 96% on R/A; Pain 0/10; tl1 20:40 BP 126 / 91; Pulse 64; Resp 14; Temp 98.8(O); Pulse Ox 98% ; Pain 0/10; tl1 17:21 Body Mass Index 32.28 (90.72 kg, 167.64 cm) aa5 ED Course: 17:07 Patient arrived in ED. as 17:10 Arm band placed on Patient placed in an exam room, on a stretcher. aa5 17:12 Patient has correct armband on for positive identification. Placed in gown. Bed in low aa5 position. Call light in reach. Side rails up X2. sheet taker on. Pulse ox on. NIBP on. 17:13 Zach Choi NP is PHCP. pm1 17:13 Kiran Ferrari MD is Attending Physician. pm1 17:17 Kayley Humphreys, RN is Primary Nurse. aa5 17:19 Triage completed. aa5 17:32 Initial lab(s) drawn, by me, sent to lab. EKG done, by ED staff, reviewed by Zach Choi NP. Inserted saline lock: 20 gauge in right forearm, using aseptic technique. Blood collected. 18:06 XRAY Chest (1 view) In Process Unspecified. EDMS 19:00 Report given to ANGELIA Cornoa. aa5 20:41 No provider procedures requiring assistance completed. IV discontinued, intact, tl1 bleeding controlled, No redness/swelling at site. Pressure dressing applied. Administered Medications: No medications were administered Outcome: 20:27 Discharge ordered by MD. pm1 20:51 Discharged to home ambulatory, with friend. tl1 20:51 Condition: good 20:51 Discharge instructions given to patient, Instructed on discharge instructions, follow up and referral plans. Demonstrated understanding of instructions, follow-up care. 20:52 Patient left the ED. tl1 Signatures: Dispatcher [employer] EDVA Ruba Luna as Kayley Humphreys, ANGELIA GALAN aa5 Chloe Dwyer, ANGELIA RN tl1 Zach Choi NP [employer]ACE OFFICER pm1 Verónica Roman RN RN [id number]
--- NOTE | 2018-10-19 09:12 | EKG ---
Test Date: 2018-10-18 Test Time: 17:15:47 Sheriff Deputy: CASSIE MEASUREMENT RESULTS: Intervals: Rate: 75 TN: 162 QRSD: 74 QT: 360 QTc: 402 [place]: P: 25 TN: 162 QRS: 11 T: 30 INTERPRETIVE STATEMENTS: Normal sinus rhythm Normal ECG Compared to ECG 10/18/2017 08:02:08 No significant changes Electronically Signed On 10-19-18 09:11:46 COMMERCIAL FINANCE ANALYST by Norman Berkowitz
== END 2018-10-18 20:52 | disposition home or self-care (01) ==
LOC: ER 17:06
DX: R07.9 Chest pain, unspecified (principal); F17.210 Nicotine dependence, cigarettes, uncomplicated; Z88.0 Allergy status to penicillin
CPT/HCPCS: 36415; 71045; 80048; 80076; 83735; 83880; 84484; 85025; 85610; 87804; 93005; 99284